=== PATIENT | female | born 1965 | race Caucasian/White ===

== ENCOUNTER 2016-11-26 15:39 | Emergency (ER) | payer OTHER ==
[~2016-11-26] VITALS: Ht 154.9 cm; Wt 59.0 kg
--- NOTE | 2016-11-26 16:00 | NUR ---
PT CAME IN FOR SI ACCOMPANIED BY FRIEND. NOTED CALM AND COOPERATIVE. WITH PLANS OF "JUMPING OFF A CLIVE". DENIES HI. VSS. SEEN BY MD FOR EVAL. SAFETY AND COMFORT MEASURES PROVIDED. WILL MONITOR.
[2016-11-26 16:18] LABS: BASOPHILS # (AUTO) 0.1 /CMM (0.0-0.2); BASOPHILS % (AUTO) 1.7 % (0.0-2.0); EOSINOPHILS # (AUTO) 0.3 /CMM (0.0-0.7); EOSINOPHILS % (AUTO) 3.9 % (0.0-6.0); HEMATOCRIT 44 % (33-45); HEMOGLOBIN 14.7 g/dL (11.5-14.8); LYMPHOCYTES # (AUTO) 2.7 /CMM (0.8-4.8); LYMPHOCYTES % (AUTO) 33.6 % (20.0-44.0); MEAN CORPUSCULAR HEMOGLOBIN 32 PG (26.0-33.0); MEAN CORPUSCULAR HGB CONC 34 g/dl (31.0-36.0); MEAN CORPUSCULAR VOLUME 94 fL (82-100); MONOCYTES # (AUTO) 0.6 /CMM (0.1-1.30); MONOCYTES % (AUTO) 7.1 % (2.0-12.0); NEUTROPHILS # (AUTO) 4.4 /CMM (1.8-8.9); NEUTROPHILS % (AUTO) 53.7 % (43.0-81.0); PLATELET COUNT (AUTO) 336 /CMM (150-450); RDW COEFFICIENT OF VARIATION 11.2 (11.5-15.0); RED BLOOD CELL COUNT(AUTO) 4.62 MIL/uL (4.0-5.2); WHITE BLOOD COUNT (AUTO) 8.1 K/uL (4.3-11.0)
[2016-11-26 16:19] LABS: APPEARANCE,URINE Slightly Cloudy (CLEAR); BILIRUBIN,URINE SMALL (NEGATIVE); BLOOD, URINE Negative Ery/uL (NEGATIVE); KETONES,URINE 15 (NEGATIVE); LEUKOCYTE ESTERASE ,URINE Negative (NEGATIVE); NITRITE, URINE Negative (NEGATIVE); PH,URINE 5.5 (5.0-8.0); PROTEIN,URINE 100 mg/dl (NEGATIVE); UGLUCOSE Negative (NEGATIVE)
[2016-11-26 16:20] LABS: COLOR,URINE Dark Yellow (YELLOW)
[2016-11-26 16:23] LABS: BACTERIA,URINE Rare /HPF (None Seen); HYALINE CASTS, URINE Few /LPF (None Seen); MUCUS,URINE Few /LPF (None Seen); SQUAMOUS EPITHELIAL CELL,UR Few /HPF (None Seen)
[2016-11-26 16:26] LABS: CALCIUM, SERUM 9.3 mg/dL (8.5-10.1); CARBON DIOXIDE 29 mmol/L (21-32); CHLORIDE 105 mmol/L (98-107); CREATININE 0.9 mg/dL (0.6-1.3); GLUCOSE 96 mg/dL (74-106); POTASSIUM 4.2 mmol/L (3.5-5.1); SODIUM SERUM 142 mmol/L (136-145); UREA NITROGEN, BLOOD 13 mg/dL (7-18)
--- NOTE | 2016-11-26 16:32 | NUR ---
CALLED ADRIEL SHE WILL BE RIGHT OVER
[2016-11-26 16:39] LABS: ALANINE AMINOTRANSFERASE 30 U/L (12-78); ALBUMIN 4.3 g/dL (3.4-5.0); ALCOHOL, BLOOD < 3 mg/dL (0-0); ALKALINE PHOSPHATASE 140 U/L (46-116); ASPARTATE AMINOTRANSFERASE 21 U/L (15-37); BILIRUBIN,DIRECT 0.1 mg/dL (0.0-0.2); BILIRUBIN,TOTAL 0.4 mg/dL (0.2-1.0); SALICYLATE 2.8 mg/dL (2.8-20.0); TOTAL PROTEIN, SERUM 7.8 g/dL (6.4-8.2)
[2016-11-26 16:56] LABS: ACETAMINOPHEN 0 ug/ml (10-30)
--- NOTE | 2016-11-26 17:20 | NUR ---
ADRIEL KELLY AT BS FOR EVAL.
--- NOTE | 2016-11-26 19:34 | NUR ---
REPORT GIVEN TO KAIDEN FRIED FOR [facility].
--- NOTE | 2016-11-26 19:36 | NUR ---
RECEIVED REPORT FROM [facility]. FOUND Pt RESTING COMFORTABLY IN ER BED 4. WITH FRIEND AT BEDSIDE. VS STABLE. WAITING ON PLACEMENT.
[2016-11-26 20:22] VITALS: BP 116/81
--- NOTE | 2016-11-26 21:09 | NUR ---
PT ACCEPTED AT [facility] BY DR DANDY MASTERS. [address] # FOR REPORT [phone]
--- NOTE | 2016-11-26 21:13 | NUR ---
CALL FROM [facility]. NEW TRANSFER INFO. PT ACCEPTED AT [facility] BY DR DANDY MASTERS. [address] # FOR REPORT [phone]
--- NOTE | 2016-11-26 21:25 | NUR ---
CALLED FOR AMB PICKUP. ETA GIVEN: [phone]
--- NOTE | 2016-11-26 22:11 | NUR ---
[facility] AT BEDSIDE FOR TRANSPORT TO [facility].
== END 2016-11-26 22:13 | disposition short-term general hospital (02) ==
LOC: ER 15:46
DX: R45.851 Suicidal ideations (principal); F15.10 Other stimulant abuse, uncomplicated; F32.9 Major depressive disorder, single episode, unspecified; F41.9 Anxiety disorder, unspecified; Z90.49 Acquired absence of other specified parts of digestive tract; Z90.710 Acquired absence of both cervix and uterus
CPT/HCPCS: 36415; 80048; 80076; 80305; 80329; 81001; 85025; 99285; A4606; G0480 ×2; 81000-TC; Z7610